=== PATIENT | female | born 1985 | race Caucasian/White ===

== ENCOUNTER 2018-01-10 13:52 | Emergency (ER) | payer MEDICAID ==
[2018-01-10] MEDS: IBUPROFEN 600 MG TAB PO (14:54)
[2018-01-10] MEDS: DIPHTH/TET/ACEL PERTUSS (ADULT) 0.5 ML VIAL IM* (14:55)
[2018-01-10] MEDS: HYDROCODONE/APAP (5/325) TAB PO (14:55)
[2018-01-10] MEDS: NEOMYC/POLYMYX/BACIT 30 GM OINT TOP (15:03)
== END 2018-01-10 15:19 | disposition home or self-care (01) ==
LOC: FTE 13:52
DX: T24.221A Burn of second degree of right knee, initial encounter (principal); T24.222A Burn of second degree of left knee, initial encounter; X10.2XXA Contact with fats and cooking oils, initial encounter; Y92.9 Unspecified place or not applicable; Z23 Encounter for immunization
CPT/HCPCS: 16020; 90471; 90715; 99283-25

== ENCOUNTER 2018-01-13 11:02 | Emergency (ER) | payer MEDICAID | END 2018-01-13 13:52 | disposition home or self-care (01) | LOC: FTE 11:02 | DX: Z48.01 Encounter for change or removal of surgical wound dressing (principal) | CPT/HCPCS: 99281; Z7502 ==

== ENCOUNTER 2018-01-20 07:26 | Emergency (ER) | payer MEDICAID | END 2018-01-20 07:54 | disposition home or self-care (01) | LOC: FTE 07:26 | DX: M79.601 Pain in right arm (principal) | CPT/HCPCS: 99283; Z7502 ==

== ENCOUNTER 2018-01-23 12:33 | Emergency (ER) | payer MEDICAID ==
[2018-01-23] MEDS: traMADol 50 MG TAB PO (13:16)
== END 2018-01-23 15:40 | disposition home or self-care (01) ==
LOC: FTE 12:33
DX: M25.521 Pain in right elbow (principal)
CPT/HCPCS: 73080; 73080-RT; 99283-25

== ENCOUNTER 2018-02-28 19:51 | Emergency (ER) | payer MEDICAID | END 2018-02-28 20:55 | disposition home or self-care (01) | LOC: FTE 19:51 | DX: G51.0 Bell's palsy (principal) | CPT/HCPCS: 99284; Z7502 ==